=== PATIENT | male | born 1970 | race African-American/Black ===

== ENCOUNTER 2021-10-03 12:18 | Inpatient (IN) | payer OTHER ==
[2021-10-03] MEDS ORDERED: MAG HYDROX/AL HYDROX/SIMETH 30 ML UNIT-DOSE CUP PO PRN (13:28)
[2021-10-03] MEDS ORDERED: BENZOCAINE/MENTHOL (CHLORASEPTIC ) LOZENGE MM PRN (13:28)
[2021-10-03] MEDS ORDERED: chlordiazePOXIDE HCL 25 MG CAPSULE PO PRN (13:28)
[2021-10-03] MEDS ORDERED: MAGNESIUM CITRATE 300 ML BOTTLE PO PRN (13:28)
[2021-10-03] MEDS ORDERED: METHOCARBAMOL 500 MG TABLET PO PRN (13:28)
[2021-10-03] MEDS ORDERED: MAGNESIUM HYDROX 2400MG/30ML ORAL SUSPENSION 30 ML CUP PO PRN (13:28)
[2021-10-03] MEDS ORDERED: IBUPROFEN 400 MG TABLET (FP) PO PRN (13:28)
[2021-10-03] MEDS ORDERED: ONDANSETRON *ODT* 4 MG TABLET SL PRN (13:28)
[2021-10-03] MEDS ORDERED: ACETAMINOPHEN 325 MG TABLET (FP) PO PRN ×2 (13:28)
[2021-10-03] MEDS ORDERED: LOPERAMIDE HCL 2 MG CAPSULE PO PRN (13:28)
[2021-10-03] MEDS ORDERED: DICYCLOMINE HCL 10 MG CAPSULE PO PRN (13:28)
[2021-10-03] MEDS ORDERED: BISMUTH SUBSALICYLATE 262 MG/15 ML BTL PO PRN (13:28)
[2021-10-03 14:31] VITALS: BMI 27.7
[2021-10-03] MEDS: hydrOXYzine PAMOATE 25 MG CAPSULE (FP) PO SCH ×3 (17:39→23:02)
[2021-10-03] MEDS: PRENATAL VITAMINS W/ FOLIC ACID TABLET (FP) PO SCH (17:39)
[2021-10-03] MEDS: NICOTINE 7 MG/24 HOURS TOPICAL PATCH TD SCH (17:39)
[2021-10-03] MEDS: chlordiazePOXIDE HCL 25 MG CAPSULE PO SCH ×2 (17:40→23:02)
[2021-10-03] MEDS: MELATONIN 5 MG TABLETS PO SCH (23:02)
[2021-10-03] MEDS: THIAMINE HCL 100 MG TABLET (FP) PO SCH (23:02)
[2021-10-04] MEDS: chlordiazePOXIDE HCL 25 MG CAPSULE PO SCH ×4 (05:17→22:00)
[2021-10-04] MEDS: hydrOXYzine PAMOATE 25 MG CAPSULE (FP) PO SCH ×5 (05:17→21:56)
[2021-10-04] MEDS ORDERED: methaDONE HCL 10 MG TABLET PO ONE (10:06)
[2021-10-04] MEDS ORDERED: methaDONE 80 MG, methaDONE 20 MG PO ONE (10:15)
[2021-10-04] MEDS ORDERED: methaDONE HCL 10 MG TABLET ONE (10:23)
[2021-10-04] MEDS ORDERED: methaDONE HCL 40 MG DISPERSABLE TABLET ONE (10:23)
[2021-10-04] MEDS: PRENATAL VITAMINS W/ FOLIC ACID TABLET (FP) PO SCH (10:43)
[2021-10-04 10:45] LABS: HEMATOCRIT 39.6 % (35.4-49); HEMOGLOBIN 12.6 GM/dL (11.7-16.9); MCH 30.5 pg (25.7-33.7); MCHC 31.9 g/dl (32.0-35.9); MEAN CELL VOLUME 95.7 fl (80-96); MEAN PLT VOLUME 7.3 fl (7.5-11.1); PLATELET COUNT 282 10^3/uL (134-434); RBC 4.14 M/mm3 (4.00-5.60); RDW 15.4 % (11.9-15.9); WHITE BLOOD COUNT 7.4 K/mm3 (4.0-10.0)
[2021-10-04] MEDS: NICOTINE 7 MG/24 HOURS TOPICAL PATCH TD SCH (10:45)
[2021-10-04] MEDS: NICOTINE 10 MG CARTRIDGE (INHALER) IH PRN (10:51)
[2021-10-04 10:56] LABS: BLOOD UREA NITROGEN 35.7 mg/dL (7-18); CALCIUM 9.3 mg/dL (8.5-10.1)
[2021-10-04 10:57] LABS: ALBUMIN 3.2 g/dl (3.4-5.0)
[2021-10-04 11:00] LABS: CREATININE 2.5 mg/dL (0.55-1.3)
[2021-10-04 11:01] LABS: BILIRUBIN,TOTAL 0.3 mg/dL (0.2-1); TOT PROT 7.4 g/dl (6.4-8.2)
[2021-10-04] MEDS: MELATONIN 5 MG TABLETS PO SCH (21:56)
[2021-10-04] MEDS: THIAMINE HCL 100 MG TABLET (FP) PO SCH (21:56)
[2021-10-05] MEDS ORDERED: methaDONE HCL 10 MG TABLET ONE (04:39)
[2021-10-05] MEDS ORDERED: methaDONE HCL 40 MG DISPERSABLE TABLET ONE (04:40)
[2021-10-05] MEDS: chlordiazePOXIDE HCL 25 MG CAPSULE PO SCH ×4 (05:27→22:54)
[2021-10-05] MEDS: hydrOXYzine PAMOATE 25 MG CAPSULE (FP) PO SCH ×5 (05:27→22:54)
[2021-10-05] MEDS: methaDONE 80 MG, methaDONE 20 MG PO SCH (05:28)
[2021-10-05] MEDS ORDERED: methaDONE HCL 10 MG TABLET PO SCH (06:00)
[2021-10-05] MEDS: PRENATAL VITAMINS W/ FOLIC ACID TABLET (FP) PO SCH (10:05)
[2021-10-05] MEDS: NICOTINE 7 MG/24 HOURS TOPICAL PATCH TD SCH (10:06)
[2021-10-05] MEDS ORDERED: SODIUM POLYSTYRENE SULFONATE 15 GM/60 ML BOTTLE PO ONE (10:10)
[2021-10-05 12:09] LABS: SARS-CoV-2 NAA Not Detected (Not Detected)
[2021-10-05] MEDS: MELATONIN 5 MG TABLETS PO SCH (22:54)
[2021-10-05] MEDS: THIAMINE HCL 100 MG TABLET (FP) PO SCH (22:54)
[2021-10-06] MEDS ORDERED: chlordiazePOXIDE HCL 10 MG CAPSULE PO PRN
[2021-10-06] MEDS ORDERED: methaDONE HCL 10 MG TABLET ONE (04:12)
[2021-10-06] MEDS ORDERED: methaDONE HCL 40 MG DISPERSABLE TABLET ONE (04:13)
[2021-10-06] MEDS: methaDONE 80 MG, methaDONE 20 MG PO SCH (05:02)
[2021-10-06] MEDS: chlordiazePOXIDE HCL 10 MG CAPSULE PO SCH ×4 (05:03→22:18)
[2021-10-06] MEDS: hydrOXYzine PAMOATE 25 MG CAPSULE (FP) PO SCH ×5 (05:03→22:18)
[2021-10-06] MEDS: NICOTINE 7 MG/24 HOURS TOPICAL PATCH TD SCH (10:31)
[2021-10-06] MEDS: PRENATAL VITAMINS W/ FOLIC ACID TABLET (FP) PO SCH (10:32)
[2021-10-06] MEDS: MELATONIN 5 MG TABLETS PO SCH (22:18)
[2021-10-06] MEDS: THIAMINE HCL 100 MG TABLET (FP) PO SCH (22:18)
[2021-10-07] MEDS ORDERED: methaDONE HCL 10 MG TABLET ONE (04:45)
[2021-10-07] MEDS ORDERED: methaDONE HCL 40 MG DISPERSABLE TABLET ONE (04:45)
[2021-10-07] MEDS: chlordiazePOXIDE HCL 10 MG CAPSULE PO SCH ×2 (05:48→17:51)
[2021-10-07] MEDS: methaDONE 80 MG, methaDONE 20 MG PO SCH (05:48)
[2021-10-07] MEDS: hydrOXYzine PAMOATE 25 MG CAPSULE (FP) PO SCH ×5 (07:12→22:25)
[2021-10-07] MEDS: PRENATAL VITAMINS W/ FOLIC ACID TABLET (FP) PO SCH (10:19)
[2021-10-07] MEDS: NICOTINE 7 MG/24 HOURS TOPICAL PATCH TD SCH (10:19)
[2021-10-07] MEDS: NICOTINE 10 MG CARTRIDGE (INHALER) IH PRN (10:20)
[2021-10-07] MEDS: MELATONIN 5 MG TABLETS PO SCH (22:25)
[2021-10-07] MEDS: THIAMINE HCL 100 MG TABLET (FP) PO SCH (22:26)
[2021-10-08] MEDS ORDERED: methaDONE HCL 10 MG TABLET ONE (04:53)
[2021-10-08] MEDS ORDERED: methaDONE HCL 40 MG DISPERSABLE TABLET ONE (04:53)
[2021-10-08] MEDS ORDERED: chlordiazePOXIDE HCL 10 MG CAPSULE PO ONE (05:00)
[2021-10-08] MEDS: hydrOXYzine PAMOATE 25 MG CAPSULE (FP) PO SCH (05:07)
[2021-10-08] MEDS: methaDONE 80 MG, methaDONE 20 MG PO SCH (05:08)
[2021-10-08 09:31] VITALS: BP 145/101; PULSE 63; TEMP 97.5
[2021-10-08 13:53] LABS: EOS % 2.5 % (0-4.5); HEMATOCRIT 35.2 % (35.4-49); HEMOGLOBIN 11.8 GM/dL (11.7-16.9); LYMPH % 37.3 % (8-40); MCH 31.8 pg (25.7-33.7); MCHC 33.7 g/dl (32.0-35.9); MEAN CELL VOLUME 94.4 fl (80-96); MEAN PLT VOLUME 7.4 fl (7.5-11.1); MONO % 10.8 % (3.8-10.2); NEUT % 48.4 % (42.8-82.8); PLATELET COUNT 248 10^3/uL (134-434); RBC 3.73 M/mm3 (4.00-5.60); RDW 15.4 % (11.9-15.9); WHITE BLOOD COUNT 6.7 K/mm3 (4.0-10.0)
== END 2021-10-08 10:12 | disposition home or self-care (01) | DRG 897 ==
LOC: YASAS 12:18 → Y3N 15:42
PROVIDERS: ADMIT Allergy & Immunology; ATTEND Allergy & Immunology
PROC: HZ2ZZZZ Detoxification Services for Substance Abuse Treatment (ICD-10-PCS; principal; 2021-10-03)
DX: F10.230 Alcohol dependence with withdrawal, uncomplicated (principal); F11.20 Opioid dependence, uncomplicated; F14.20 Cocaine dependence, uncomplicated; F12.20 Cannabis dependence, uncomplicated; F17.210 Nicotine dependence, cigarettes, uncomplicated; I10 Essential (primary) hypertension; N18.9 Chronic kidney disease, unspecified; R79.89 Other specified abnormal findings of blood chemistry
CPT/HCPCS: 36415; 80053; 85025; 85027; 86780; 93005; 93010; C9803-CS; U0003; U0005